=== PATIENT | female | born 1975 | race Caucasian/White ===

== ENCOUNTER 2016-03-28 18:10 | Emergency (ER) | payer BC ==
--- NOTE | 2016-03-28 18:30 | ER Document Report ---
ED Medical Screen (RME) - General Stated Complaint: FEVER Time seen by provider: 18:29 Mode of Arrival: Ambulatory Information source: Patient Notes: 41-year-old female presents to ED for fever and cough for off and on since Thursday. She has a temperature in RME of 101.6 and states she took ibuprofen last set around 11:00 this morning. States she does not remember when her last menstrual period was cause her son crashed and she did cannot look it up she thinks she had one last month. States she's had a tubal ligation I have greeted and performed a rapid initial assessment of this patient. A comprehensive ED assessment and evaluation of the patient, analysis of test results and completion of medical decision making process will be conducted by an additional ED providers. TRAVEL OUTSIDE OF THE [place] IN LAST 30 DAYS: No Past Medical History - Past Medical History Cardiac Medical History: Reports: Hx Hypercholesterolemia, Hx Hypertension Endocrine Medical History: Reports: Hx Diabetes Mellitus Type 2 Musculoskeltal Medical History: Reports Hx Musculoskeletal Trauma Past Surgical History: Reports: Hx Section - Immunizations Hx Diphtheria, Pertussis, Tetanus Vaccination: Yes
[2016-03-28] MEDS ORDERED: ACETAMINOPHEN 325 MG TABLET PO ONE (18:31)
[2016-03-28] MEDS ORDERED: NORMAL SALINE 1000 ML 1,000 ML IV ONE (18:59)
--- NOTE | 2016-03-28 20:08 | ER Document Report ---
ED General - General Mode of Arrival: Ambulatory Information source: Patient TRAVEL OUTSIDE OF THE [place] IN LAST 30 DAYS: No - HPI Onset: Other - see HPI Onset/Duration: Gradual Associated symptoms: Chest pain, Productive cough, Fever <MAYRA HOOKER - Last Filed: 03/28/16 22:04> <CHRISTIAN MCKEON - Last Filed: 03/28/16 23:13> - General Chief Complaint: Fever Stated Complaint: FEVER Notes: Cough and chest wall pain. Patient states that her cough started Thursday and her chest wall pain is exacerbated when she is coughing. Patient states she also has a slight sore throat. Patient has hypertension and diabetes mellitus and is taking metformin. Patient's blood glucose level has been slightly high [id number]. Patient states she feels weak like she is going to pass out. Patient also has a fever of 101.6 F. Patient states that she has had the flue before but does not remember if her symptoms are equivalent to her symptoms now. Patient is allergic to aspirin. (MAYRA HOOKER) - Related Data Allergies/Adverse Reactions: aspirin Allergy (Verified 03/28/16 18:29) Past Medical History - General Information source: Patient - Social History Smoking Status: Unknown if Ever Smoked Chew tobacco use (# tins/day): No Frequency of alcohol use: None Drug Abuse: None Family History: Reviewed & Not Pertinent, Arthritis, CAD, DM, Hyperlipidemia, Hypertension, Malignancy, Thyroid Disfunction Patient has suicidal ideation: No Patient has homicidal ideation: No - Past Medical History Cardiac Medical History: Reports: Hx Hypercholesterolemia, Hx Hypertension Endocrine Medical History: Reports: Hx Diabetes Mellitus Type 2 Musculoskeltal Medical History: Reports Hx Musculoskeletal Trauma Past Surgical History: Reports: Hx Section - Immunizations Hx Diphtheria, Pertussis, Tetanus Vaccination: Yes <MAYRA HOOKER - Last Filed: 03/28/16 22:04> Review of Systems - Review of Systems Constitutional: See HPI, Fever, Malaise, Weakness EENT: See HPI, Throat pain Cardiovascular: See HPI, Chest pain Respiratory: See HPI, Cough Gastrointestinal: No symptoms reported Genitourinary: No symptoms reported Female Genitourinary: No symptoms reported Musculoskeletal: No symptoms reported Skin: No symptoms reported Hematologic/Lymphatic: No symptoms reported Neurological/Psychological: No symptoms reported -: Yes All other systems reviewed and negative <MAYRA HOOKER - Last Filed: 03/28/16 22:04> Physical Exam - Vital signs Interpretation: Tachycardic, Febrile - General General appearance: Appears well, Alert In distress: Mild - HEENT Head: Normocephalic, Atraumatic Eyes: Normal Pupils: PERRL Mucous membranes: Normal - Respiratory Respiratory status: No respiratory distress Chest status: Nontender Breath sounds: Normal Chest palpation: Normal - Cardiovascular Rhythm: Regular Heart sounds: Normal auscultation Murmur: No - Abdominal Inspection: Normal Distension: No distension Bowel sounds: Normal Tenderness: Nontender Organomegaly: No organomegaly - Back Back: Normal, Nontender - Extremities General upper extremity: Normal inspection, Normal ROM, Normal strength General lower extremity: Normal inspection, Normal ROM, Normal strength - Neurological Neuro grossly intact: Yes Cognition: Normal Orientation: AAOx4 Tamara Coma Scale Eye Opening: Spontaneous Russell Coma Scale Verbal: Oriented Russell Coma Scale Motor: Obeys Commands Tamara Coma Scale Total: 15 Speech: Normal - Psychological Associated symptoms: Normal affect, Normal mood - Skin Skin Temperature: Warm Skin Moisture: Dry <MAYRA HOOKER - Last Filed: 03/28/16 22:04> Course - Laboratory Result Diagrams: 03/28/16 20:15 03/28/16 20:15 <MAYRA HOOKER - Last Filed: 03/28/16 22:04> - Laboratory Result Diagrams: 03/28/16 20:15 03/28/16 21:49 - Diagnostic Test Radiology reviewed: Image reviewed, Reports reviewed <CHRISTIAN MCKEON - Last Filed: 03/28/16 23:13> - Re-evaluation Re-evalutation: 03/28/16 Patient is a 41-year-old female who comes in with a fever and cough. No evidence for pneumonia. No respiratory distress. Patient's heart rate and blood pressure are within normal limits after 2 L of fluid. Patient feels better. I cannot find any evidence for bacterial infection. Lactate is within normal limits. Likely influenza and a false-negative test. Patient will be discharged home and is to return immediately if she has any worsening or concerning symptoms. Understands and agrees with plan. Stable for discharge. ( CHRISTIAN MCKEON) - Vital Signs Vital signs: Temp Pulse Resp BP Pulse Ox 100.6 F H 139 H 14 111/74 97 03/28/16 22:11 03/28/16 18:23 03/28/16 21:01 03/28/16 21:01 03/28/16 21:01 (MAYRA HOOKER) (CHRISTIAN MCKEON) - Laboratory Laboratory results interpreted by me: 03/28/16 03/28/16 03/28/16 20:15 20:15 21:49 RDW 15.1 H Seg Neutrophils % 82.6 H Lymphocytes % 9.8 L Sodium 136.5 L Potassium 5.3 H Glucose 189 H AST 38 H ALT 63 H Urine Protein 30 H Urine Ketones 20 H Ur Leukocyte Esterase TRACE H (CHRISTIAN MCKEON) Discharge <MAYRA HOOKER - Last Filed: 03/28/16 22:04> <CHRISTIAN MCKEON - Last Filed: 03/28/16 23:13> - Discharge Clinical Impression: Influenza-like illness Condition: Stable Disposition: ADMITTED INPATIENT Instructions: Fever ([facility]), Viral Syndrome ([facility]) Additional Instructions: Please return if you have any further concerns or worsening symptoms. Prescriptions: Tramadol HCl 50 mg PO BIDP PRN #20 tablet PRN Reason: Forms: Return to Work Referrals: JUAN F FUENTES MD [Primary Care Provider] - Follow up as needed Scribe Attestation: 03/28/16 23:13 I personally performed the services described in the documentation, reviewed and edited the documentation which was dictated to the scribe in my presence, and it accurately records my words and actions. (CHRISTIAN MCKEON) Scribe Documentation - Scribe Written by Scribmanuel:: Mayra Hooker 03/28/16 21:45 acting as scribe for :: Patsy <MAYRA HOOKER - Last Filed: 03/28/16 22:04>
[2016-03-28 20:35] LABS: ABSOLUTE LYMPHOCYTES (AUTO) 0.9 10^3/uL (0.5-4.7); ABSOLUTE MONOCYTES (AUTO) 0.7 10^3/uL (0.1-1.4); ABSOLUTE NEUT (AUTO) 7.9 10^3/uL (1.7-8.2); BASOPHILS % (AUTO) 0.4 % (0-2); EOSINOPHILS % (AUTO) 0.2 % (0-6); HEMATOCRIT 39.5 % (36.0-47.0); HEMOGLOBIN 12.9 g/dL (12.0-15.5); HGB HCT DIFFERENCE -0.8; LYMPHOCYTES % (AUTO) 9.8 % (13-45); MEAN CORPUSCULAR HEMOGLOBIN 27.5 pg (27.0-33.4); MEAN CORPUSCULAR HGB CONC 32.6 g/dL (32.0-36.0); MEAN CORPUSCULAR VOLUME 84 fl (80-97); RED BLOOD COUNT 4.69 10^6/uL (3.72-5.28); RED CELL DISTRIBUTION WIDTH 15.1 % (11.5-14.0); SEGMENTED NEUTROPHILS % (AUTO) 82.6 % (42-78); WHITE BLOOD COUNT 9.6 10^3/uL (4.0-10.5)
[2016-03-28 20:58] LABS: APPEARANCE,URINE SLIGHTLY-CLOUDY; BILIRUBIN,URINE NEGATIVE (NEGATIVE); GLUCOSE, URINE NEGATIVE (NEGATIVE); KETONES,URINE 20 mg/dL (NEGATIVE); LEUKOCYTE ESTERASE,URINE TRACE (NEGATIVE); NITRITE,URINE NEGATIVE (NEGATIVE); PROTEIN,URINE 30 mg/dL (NEGATIVE); UROBILINOGEN,URINE NEGATIVE mg/dL (<2.0)
[2016-03-28] MEDS ORDERED: RINGERS SOLUTION,LACTATED 1,000 ML IV ONE (21:26)
[2016-03-28 22:19] LABS: ALANINE AMINOTRANSFERASE 63 U/L (9-52); ALKALINE PHOSPHATASE 53 U/L (38-126); ANION GAP 15 (5-19); ASPARTATE AMINO TRANSFERASE 38 U/L (14-36); BILIRUBIN,TOTAL 0.4 mg/dL (0.2-1.3); BLOOD UREA NITROGEN 14 mg/dL (7-20); CALCIUM 9.3 mg/dL (8.4-10.2); CARBON DIOXIDE 24 mmol/L (22-30); CHLORIDE 98 mmol/L (98-107); CREATININE RESULT 0.79 mg/dL (0.52-1.25); GLUCOSE 189 mg/dL (75-110); POTASSIUM 5.3 mmol/L (3.6-5.0); SODIUM 136.5 mmol/L (137-145); TOTAL PROTEIN 7.4 g/dL (6.3-8.2)
[2016-03-28] MEDS ORDERED: HYDROCODONE/ACETAMINOPHEN 5-325 MG 6 TAB/DSPK PO PRN (22:51)
[2016-03-28] MEDS ORDERED: IBUPROFEN 600 MG TABLET PO ONE (22:51)
[2016-03-29 04:18] VITALS: BP 116/81
== END 2016-03-29 00:15 | disposition home or self-care (01) ==
LOC: ER 18:10
DX: J11.1 Influenza due to unidentified influenza virus with other respiratory manifestations (principal); R50.9 Fever, unspecified; R07.9 Chest pain, unspecified; R53.1 Weakness; I10 Essential (primary) hypertension; E11.9 Type 2 diabetes mellitus without complications; Z79.84 Long term (current) use of oral hypoglycemic drugs; E78.00 Pure hypercholesterolemia, unspecified
CPT/HCPCS: 99284; 96361; 96365; 36415; 87040; 85025; 80053; 81001; 83605; 87804; 71020; 71260; J7030; J7120

== ENCOUNTER 2017-07-29 18:05 | Emergency (ER) | payer BC ==
[2017-07-29] MEDS ORDERED: NORMAL SALINE 1000 ML 1,000 ML IV ONE (18:54)
--- NOTE | 2017-07-29 19:00 | ER Document Report ---
ED Medical Screen (RME) - General Chief Complaint: High Blood Pressure Stated Complaint: BLOOD PRESSURE ISSUES Time Seen by Provider: 07/29/17 18:49 Notes: 42 years old female with a history of diabetes, hypertension, noncompliant with medication, not been taking losartan regularly, presents today with episode of dizziness and lightheadedness, with an elevated blood pressure. Denies any chest pain but felt the heart beating faster. Denies any left arm numbness tingling sensation. Denies any fever chills or other constitutional symptoms I have greeted and performed a rapid initial assessment of this patient. A comprehensive ED assessment and evaluation of the patient, analysis of test results and completion of the medical decision making process will be conducted by additional ED providers. PHYSICAL EXAMINATION: GENERAL: Well-appearing, well-nourished and in no acute distress. Obese HEAD: Atraumatic, normocephalic. EYES: Pupils equal round extraocular movements intact, conjunctiva are normal. ENT: Nares patent NECK: Normal range of motion LUNGS: No respiratory distress Musculoskeletal: Normal range of motion NEUROLOGICAL: Normal speech, normal gait. PSYCH: Normal mood, normal affect. SKIN: Warm, Dry, normal turgor, no rashes or lesions noted. TRAVEL OUTSIDE OF THE [place] IN LAST 30 DAYS: No - Related Data Allergies/Adverse Reactions: aspirin Allergy (Verified 07/29/17 18:09) Past Medical History - General Information source: Patient - Social History Chew tobacco use (# tins/day): No Frequency of alcohol use: None Drug Abuse: None Family history: Reviewed & Not Pertinent - Past Medical History Cardiac Medical History: Reports: Hx Hypercholesterolemia, Hx Hypertension Endocrine Medical History: Reports: Hx Diabetes Mellitus Type 2 Renal/ Medical History: Denies: Hx Peritoneal Dialysis Musculoskeltal Medical History: Reports Hx Musculoskeletal Trauma Past Surgical History: Reports: Hx Section - x2, Hx Tonsillectomy - Immunizations Hx Diphtheria, Pertussis, Tetanus Vaccination: Yes Review of Systems - Review of Systems Notes: [facility] Physical Exam - Vital signs Vitals: Pulse BP 120 H 154/109 H 07/29/17 18:51 07/29/17 18:51 - Notes Notes: [facility] Course - Vital Signs Vital signs: Temp Pulse Resp BP Pulse Ox 120 H 154/109 H 07/29/17 18:51 07/29/17 18:51 Doctor's Discharge - Discharge Referrals: JUAN F FUENTES MD [Primary Care Provider] - Follow up as needed
[2017-07-29 19:57] LABS: ABSOLUTE BASOPHILS # (AUTO) 0.1 10^3/uL (0.0-0.2); ABSOLUTE EOSINOPHILS # (AUTO) 0.1 10^3/uL (0.0-0.6); ABSOLUTE LYMPHOCYTES (AUTO) 1.3 10^3/uL (0.5-4.7); ABSOLUTE MONOCYTES (AUTO) 0.5 10^3/uL (0.1-1.4); ABSOLUTE NEUT (AUTO) 10.8 10^3/uL (1.7-8.2); BASOPHILS % (AUTO) 0.5 % (0-2); EOSINOPHILS % (AUTO) 0.6 % (0-6); HEMATOCRIT 37.7 % (36.0-47.0); HEMOGLOBIN 12.2 g/dL (12.0-15.5); LYMPHOCYTES % (AUTO) 10.2 % (13-45); MEAN CORPUSCULAR HEMOGLOBIN 25.9 pg (27.0-33.4); MEAN CORPUSCULAR HGB CONC 32.5 g/dL (32.0-36.0); MEAN CORPUSCULAR VOLUME 80 fl (80-97); MONOCYTES % (AUTO) 4.3 % (3-13); PLATELET COUNT 512 10^3/uL (150-450); RED BLOOD COUNT 4.74 10^6/uL (3.72-5.28); RED CELL DISTRIBUTION WIDTH 15.3 % (11.5-14.0); SEGMENTED NEUTROPHILS % (AUTO) 84.4 % (42-78); TOTAL CELLS COUNTED % (AUTO) 100 %; WHITE BLOOD COUNT 12.7 10^3/uL (4.0-10.5)
[2017-07-29 20:03] LABS: APPEARANCE,URINE CLEAR; BILIRUBIN,URINE NEGATIVE (NEGATIVE); COLOR,URINE STRAW; GLUCOSE, URINE >=500 mg/dL (NEGATIVE); KETONES,URINE TRACE mg/dL (NEGATIVE); LEUKOCYTE ESTERASE,URINE NEGATIVE (NEGATIVE); NITRITE,URINE NEGATIVE (NEGATIVE); PROTEIN,URINE NEGATIVE (NEGATIVE); URINE SPECIFIC GRAVITY 1.009; UROBILINOGEN,URINE NEGATIVE mg/dL (<2.0)
[2017-07-29 20:12] LABS: ALANINE AMINOTRANSFERASE 36 U/L (9-52); ALBUMIN 5.1 g/dL (3.5-5.0); ALKALINE PHOSPHATASE 63 U/L (38-126); ANION GAP 18 (5-19); ASPARTATE AMINO TRANSFERASE 20 U/L (14-36); BILIRUBIN,DIRECT 0.3 mg/dL (0.0-0.4); BILIRUBIN,TOTAL 0.3 mg/dL (0.2-1.3); BLOOD UREA NITROGEN 14 mg/dL (7-20); CALCIUM 10.6 mg/dL (8.4-10.2); CARBON DIOXIDE 24 mmol/L (22-30); CHLORIDE 101 mmol/L (98-107); GLUCOSE 189 mg/dL (75-110); POTASSIUM 4.6 mmol/L (3.6-5.0); SODIUM 143.1 mmol/L (137-145); TOTAL PROTEIN 8.6 g/dL (6.3-8.2)
--- NOTE | 2017-07-29 21:14 | ER Document Report ---
ED General - General Chief Complaint: High Blood Pressure Stated Complaint: BLOOD PRESSURE ISSUES Time Seen by Provider: 07/29/17 18:49 Notes: Patient is a 42-year-old female who presents emergency department the chief complaint of lightheadedness and fogginess that she has had on and off for years. She states that she has been seen multiple times the emergency department for this is never followed up with her primary care. Patient states that normally when she has this occurrence she checks her blood sugar and her blood pressure. Patient states that her sugar today was 142 and her blood pressure was 160/117. Patient states that she sporadically takes lisinopril 20 mg maybe once every other week since she forgets to take it. She is also on metformin and lovastatin. TRAVEL OUTSIDE OF THE [place] IN LAST 30 DAYS: No - Related Data Allergies/Adverse Reactions: aspirin Allergy (Verified 07/29/17 18:09) Past Medical History - General Information source: Patient - Social History Smoking Status: Never Smoker Chew tobacco use (# tins/day): No Frequency of alcohol use: None Drug Abuse: None Family History: Reviewed & Not Pertinent, Arthritis, CAD, DM, Hyperlipidemia, Hypertension, Malignancy, Thyroid Disfunction Patient has suicidal ideation: No Patient has homicidal ideation: No - Past Medical History Cardiac Medical History: Reports: Hx Hypercholesterolemia, Hx Hypertension Endocrine Medical History: Reports: Hx Diabetes Mellitus Type 2 Renal/ Medical History: Denies: Hx Peritoneal Dialysis Musculoskeltal Medical History: Reports Hx Musculoskeletal Trauma Past Surgical History: Reports: Hx Section - x2, Hx Tonsillectomy - Immunizations Hx Diphtheria, Pertussis, Tetanus Vaccination: Yes Review of Systems - Review of Systems Constitutional: See HPI EENT: No symptoms reported Cardiovascular: No symptoms reported Respiratory: No symptoms reported Gastrointestinal: No symptoms reported Musculoskeletal: No symptoms reported Neurological/Psychological: See HPI -: Yes All other systems reviewed and negative Physical Exam - Vital signs Vitals: Pulse BP 120 H 154/109 H 07/29/17 18:51 07/29/17 18:51 - Notes Notes: PHYSICAL EXAM GENERAL: Alert, interacts well. HEAD: Normocephalic, atraumatic. EYES: Pupils equal, round, and reactive to light. Extraocular movements intact. ENT: Oral mucosa moist, tongue midline. NECK: Full range of motion. Supple. Trachea midline. LUNGS: Clear to auscultation bilaterally, no wheezes, rales, or rhonchi. No respiratory distress. HEART: Regular rate and rhythm. No murmurs, gallops, or rubs. ABDOMEN: Soft, nondistended, nontender. No guarding, rebound, or rigidity.. Bowel sounds present in all 4 quadrants. EXTREMITIES: Moves all 4 extremities spontaneously. No edema, radial and dorsalis pedis pulses 2/4 bilaterally. No cyanosis. NEUROLOGICAL: Alert and oriented x4. Face symmetric. Tongue protrudes midline. Extraocular motions intact. Pupils are 2 mm and equally reactive. Normal speech, normal gait. 5 out of 5 strength in both the distal and proximal upper and lower extremities bilaterally. Sensation is grossly intact throughout. Finger to nose testing normal. Pronator drift normal. PSYCH: Normal affect, normal mood. SKIN: Warm, dry, normal turgor. No rashes or lesions noted. Course - Re-evaluation Re-evalutation: 07/29/17 21:52 Presentation of dizziness in a Patient normotensive, alert, without focal neurologic deficits at time of arrival. Denies syncope was during exertion. No preceding symptoms of palpitations, chest pain, or shortness of breath. Patient asymptomatic at time of arrival. EKG is without evidence of HCOM, right heart strain, ST changes to suggest ischemia, prolong QTc, delta wave, epsilon wave, or Brugada syndrome. Patient denies any family history of sudden cardiac , personal history of of structural heart disease. Patient denies any symptoms to suggest an acute PE, VT, TAD, SAH, seizure, or acute GI bleed as the etiology of their syncope today. On exam, no murmurs to suggest critical aortic stenosis as possible etiology. Based on overall clinical history, exam findings, vitals , and patients appearance, I feel it is safe for patient to be discharged home at this time with close outpatient follow-up and strict return precautions. Patient is in agreement with this plan, has verbalized indications for return to ED, and questions have been answered. - Vital Signs Vital signs: Temp Pulse Resp BP Pulse Ox 91 130/74 H 07/29/17 21:22 07/29/17 21:22 - Laboratory Result Diagrams: 07/29/17 19:45 07/29/17 19:45 Laboratory results interpreted by me: 05/30/18 05/30/18 05/30/18 19:45 19:45 19:45 WBC 12.7 H MCH 25.9 L RDW 15.3 H Plt Count 512 H Seg Neutrophils % 84.4 H Lymphocytes % 10.2 L Absolute Neutrophils 10.8 H Glucose 189 H Calcium 10.6 H Total Protein 8.6 H Albumin 5.1 H Urine Glucose (UA) >=500 H Urine Ketones TRACE H Urine Blood SMALL H - EKG Interpretation by Pa EKG shows normal: Sinus rhythm Rate: Normal Rhythm: NSR When compared to previous EKG there are: No significant change Discharge - Discharge Clinical Impression: Diabetes, Hypertension, Dizziness Condition: Good Disposition: HOME, SELF-CARE Instructions: High Blood Pressure ([facility]) Referrals: JUAN F FUENTES MD [NO LOCAL MD] - Follow up as needed [facility] [Provider Group] - Follow up as needed [facility] [Provider Group] - Follow up in 1 week
[2017-07-29 21:28] VITALS: BP 130/74
--- NOTE | 2017-07-29 23:12 | EKG REPORT ---
SEVERITY:- OTHERWISE NORMAL ECG - SINUS TACHYCARDIA : Confirmed by: Deandre Aden 29-Jul-2017 23:11:44
== END 2017-07-29 22:00 | disposition home or self-care (01) ==
LOC: ER 18:05
DX: E11.9 Type 2 diabetes mellitus without complications (principal); I10 Essential (primary) hypertension; R42 Dizziness and giddiness; E78.00 Pure hypercholesterolemia, unspecified; Z88.6 Allergy status to analgesic agent
CPT/HCPCS: 36415; 80053; 81001; 81025; 84484; 85025; 93005; 93010; 99284

== ENCOUNTER 2017-10-09 11:18 | Emergency (ER) | payer BC ==
--- NOTE | 2017-10-09 11:28 | ER Document Report ---
ED Medical Screen (RME) - General Chief Complaint: Anxiety Stated Complaint: BLOOD PRESSURE ISSUE, ARM PAIN Time Seen by Provider: 10/09/17 11:25 Mode of Arrival: Wheelchair Information source: Patient TRAVEL OUTSIDE OF THE [place] IN LAST 30 DAYS: No - HPI Patient complains to provider of: shaking L arm pain Onset: This morning - pt started on sertraline yesterday by PCP - states she started with shaking, chills, and L arm pain earlier this am. Denies CP - Related Data Allergies/Adverse Reactions: aspirin Allergy (Verified 07/29/17 18:09) Past Medical History - Social History Family history: Reviewed & Not Pertinent - Past Medical History Cardiac Medical History: Reports: Hx Hypercholesterolemia, Hx Hypertension Endocrine Medical History: Reports: Hx Diabetes Mellitus Type 2 Renal/ Medical History: Denies: Hx Peritoneal Dialysis Musculoskeltal Medical History: Reports Hx Musculoskeletal Trauma Past Surgical History: Reports: Hx Section - x2, Hx Tonsillectomy - Immunizations Hx Diphtheria, Pertussis, Tetanus Vaccination: Yes Doctor's Discharge - Discharge Instructions: Anxiety ([facility])
[2017-10-09 11:51] LABS: ABSOLUTE EOSINOPHILS # (AUTO) 0.1 10^3/uL (0.0-0.6); ABSOLUTE LYMPHOCYTES (AUTO) 1.5 10^3/uL (0.5-4.7); ABSOLUTE MONOCYTES (AUTO) 0.5 10^3/uL (0.1-1.4); ABSOLUTE NEUT (AUTO) 7.8 10^3/uL (1.7-8.2); BASOPHILS % (AUTO) 0.5 % (0-2); EOSINOPHILS % (AUTO) 0.9 % (0-6); HEMATOCRIT 36.3 % (36.0-47.0); LYMPHOCYTES % (AUTO) 15.4 % (13-45); MEAN CORPUSCULAR HEMOGLOBIN 26.9 pg (27.0-33.4); MEAN CORPUSCULAR HGB CONC 33.1 g/dL (32.0-36.0); MEAN CORPUSCULAR VOLUME 81 fl (80-97); MONOCYTES % (AUTO) 5.3 % (3-13); PLATELET COUNT 520 10^3/uL (150-450); RED BLOOD COUNT 4.46 10^6/uL (3.72-5.28); SEGMENTED NEUTROPHILS % (AUTO) 77.9 % (42-78); TOTAL CELLS COUNTED % (AUTO) 100 %
[2017-10-09 12:03] LABS: AMORPHOUS SEDIMENT,URINE TRACE /HPF; APPEARANCE,URINE CLEAR; BILIRUBIN,URINE NEGATIVE (NEGATIVE); COLOR,URINE YELLOW; GLUCOSE, URINE NEGATIVE (NEGATIVE); KETONES,URINE NEGATIVE (NEGATIVE); LEUKOCYTE ESTERASE,URINE SMALL (NEGATIVE); NITRITE,URINE NEGATIVE (NEGATIVE); PROTEIN,URINE 100 mg/dL (NEGATIVE); URINE SPECIFIC GRAVITY 1.004; UROBILINOGEN,URINE NEGATIVE mg/dL (<2.0)
[2017-10-09 12:20] LABS: ALANINE AMINOTRANSFERASE 25 U/L (9-52); ALBUMIN 4.9 g/dL (3.5-5.0); ALKALINE PHOSPHATASE 64 U/L (38-126); ANION GAP 19 (5-19); ASPARTATE AMINO TRANSFERASE 18 U/L (14-36); BILIRUBIN,DIRECT 0.3 mg/dL (0.0-0.4); BILIRUBIN,TOTAL 0.5 mg/dL (0.2-1.3); BLOOD UREA NITROGEN 11 mg/dL (7-20); CALCIUM 10.1 mg/dL (8.4-10.2); CARBON DIOXIDE 22 mmol/L (22-30); CHLORIDE 99 mmol/L (98-107); GLUCOSE 194 mg/dL (75-110); POTASSIUM 4.5 mmol/L (3.6-5.0); SODIUM 139.5 mmol/L (137-145); TOTAL PROTEIN 8.3 g/dL (6.3-8.2)
--- NOTE | 2017-10-09 12:39 | ER Document Report ---
Addendum entered and electronically signed by ERIN BELTRAN LCSWA 10/09/17 15: 42: Discharge - Discharge Clinical Impression: Agoraphobia with panic attacks Condition: Stable Disposition: HOME, SELF-CARE Instructions: Anxiety ([facility]) Additional Instructions: You have been evaluated by both medical and behavioral health team's and have deemed appropriate for discharge. You are recommended to follow-up with a mental health professional of your choice; you have been provided a local resource list. You have been prescribed Effexor 37.5 mg daily and BuSpar 5 mg every morning and 10 mg nightly, please take as prescribed. Panic Attack The cause of panic attacks is unknown. Symptoms can include chest pain, shortness of breath, palpitations, sweats, and a sense of smothering or impending doom. In time, the panic attacks can lead to generalized anxiety and phobias. Because the symptoms can mimic heart attack, pulmonary embolism, and other serious diseases, the physician has evaluated you for these conditions. There is no evidence of a serious problem. An acute panic attack usually goes away by itself without treatment. A severe attack can be treated with medicine to calm you. Long-term, antidepressant medicines may help prevent attacks. Counselling can also be very beneficial in dealing with panic attacks. Panic attacks are less likely if you are getting regular exercise, proper diet, and plenty of sleep. It's normal for panic attacks to cause many frightening symptoms. However, you should call or return if your symptoms change significantly or if you are worsening. Prescriptions: Buspirone HCl [Buspar 5 mg Tablet] 1 tab PO ASDIR PRN #42 tab PRN Reason: Venlafaxine HCl ER [Effexor Xr 37.5 mg Cap.sr] 37.5 mg PO DAILY #14 cap.sr.24h Referrals: IRA ZENDEJAS DO [Primary Care Provider] - Follow up as needed Scribe Attestation: 10/09/17 12:45 I personally performed the services described in the documentation, reviewed and edited the documentation which was dictated to the scribe in my presence, and it accurately records my words and actions. Original Note: ED Psych Disorder / Suicide - General Mode of Arrival: Wheelchair Information source: Patient TRAVEL OUTSIDE OF THE [place] IN LAST 30 DAYS: No <KEMAR VALLEJO - Last Filed: 10/09/17 14:05> <ERIN BELTRAN - Last Filed: 10/09/17 15:37> <LU CORREIA - Last Filed: 10/09/17 15:44> - General Chief Complaint: Anxiety Stated Complaint: BLOOD PRESSURE ISSUE, ARM PAIN Time Seen by Provider: 10/09/17 11:25 Notes: 42-year-old female who presents to the emergency department today with complaints of anxiety. Patient is agoraphobic and she was started on Zoloft last night to try to help with this. Patient states today she got increased anxiety when going to the mall. Patient denies any increased stressors at home. (KEMAR VALLEJO) - Related Data Allergies/Adverse Reactions: aspirin Allergy (Verified 10/09/17 11:31) Past Medical History - General Information source: Patient - Social History Smoking Status: Never Smoker Cigarette use (# per day): No Frequency of alcohol use: None Drug Abuse: None Lives with: Family Family History: Reviewed & Not Pertinent, Arthritis, CAD, DM, Hyperlipidemia, Hypertension, Malignancy, Thyroid Disfunction Patient has suicidal ideation: No Patient has homicidal ideation: No - Past Medical History Cardiac Medical History: Reports: Hx Hypercholesterolemia, Hx Hypertension Endocrine Medical History: Reports: Hx Diabetes Mellitus Type 2 Musculoskeletal Medical History: Reports Hx Musculoskeletal Trauma Past Surgical History: Reports: Hx Section - x2, Hx Tonsillectomy - Immunizations Hx Diphtheria, Pertussis, Tetanus Vaccination: Yes <KEMAR VALLEJO - Last Filed: 10/09/17 14:05> Review of Systems - Review of Systems Constitutional: No symptoms reported EENT: No symptoms reported Cardiovascular: No symptoms reported Respiratory: No symptoms reported Gastrointestinal: No symptoms reported Genitourinary: No symptoms reported Female Genitourinary: No symptoms reported Musculoskeletal: No symptoms reported Skin: No symptoms reported Hematologic/Lymphatic: No symptoms reported Neurological/Psychological: See HPI, Anxiety -: Yes All other systems reviewed and negative <KEMAR VALLEJO - Last Filed: 10/09/17 14:05> Physical Exam <KEMAR VALLEJO - Last Filed: 10/09/17 14:05> <ERIN BELTRAN - Last Filed: 10/09/17 15:37> <LU CORREIA - Last Filed: 10/09/17 15:44> - Vital signs Vitals: Temp Pulse Resp BP Pulse Ox 98.8 F 125 H 16 173/92 H 100 10/09/17 11:26 10/09/17 11:26 10/09/17 11:26 10/09/17 11:26 10/09/17 11:26 - Notes Notes: Physical Exam: General: Alert, appears well. HEENT: Normocephalic. Atraumatic. PERRL. Extraocular movements intact. Oropharynx clear. Neck: Supple. Non-tender. Respiratory: No respiratory distress. Clear and equal breath sounds bilaterally. Cardiovascular: Regular rate and rhythm. Abdominal: Obese. Non-tender. No distension. Normal Bowel Sounds. Back: Non-tender. No deformity or step off. Extremities: Moves all four extremities. Upper extremities: Normal inspection. Normal ROM. Lower extremities: Normal inspection. No edema. Normal ROM. Neurological: Normal cognition. AAOx4. Normal speech. Psychological: Tearful. Anxious. Skin: Warm. Dry. Normal color. (KEMAR VALLEJO) Course - Laboratory Result Diagrams: 10/09/17 11:38 10/09/17 11:38 <KEMAR VALLEJO - Last Filed: 10/09/17 14:05> - Laboratory Result Diagrams: 10/09/17 11:38 10/09/17 11:38 <LU CORREIA - Last Filed: 10/09/17 15:44> - Vital Signs Vital signs: Temp Pulse Resp BP Pulse Ox 98.8 F 125 H 16 173/92 H 100 10/09/17 11:26 10/09/17 11:26 10/09/17 11:26 10/09/17 11:26 10/09/17 11:26 - Laboratory Laboratory results interpreted by me: 10/09/17 10/09/17 10/09/17 11:38 11:38 11:38 MCH 26.9 L RDW 16.0 H Plt Count 520 H Glucose 194 H Total Protein 8.3 H Urine Protein 100 H Ur Leukocyte Esterase SMALL H Discharge <KEMAR VALLEJO - Last Filed: 10/09/17 14:05> <ERIN BELTRAN - Last Filed: 10/09/17 15:37> <LU CORREIA - Last Filed: 10/09/17 15:44> - Discharge Clinical Impression: Agoraphobia with panic attacks Condition: Stable Disposition: HOME, SELF-CARE Instructions: Anxiety ([facility]) Additional Instructions: You have been evaluated by both medical and behavioral health team's and have deemed appropriate for discharge. You are recommended to follow-up with a mental health professional of your choice; you have been provided a local resource list. You have been prescribed Effexor 37.5 mg daily and BuSpar 5 mg every morning and 10 mg nightly, please take as prescribed. Panic Attack The cause of panic attacks is unknown. Symptoms can include chest pain, shortness of breath, palpitations, sweats, and a sense of smothering or impending doom. In time, the panic attacks can lead to generalized anxiety and phobias. Because the symptoms can mimic heart attack, pulmonary embolism, and other serious diseases, the physician has evaluated you for these conditions. There is no evidence of a serious problem. An acute panic attack usually goes away by itself without treatment. A severe attack can be treated with medicine to calm you. Long-term, antidepressant medicines may help prevent attacks. Counselling can also be very beneficial in dealing with panic attacks. Panic attacks are less likely if you are getting regular exercise, proper diet, and plenty of sleep. It's normal for panic attacks to cause many frightening symptoms. However, you should call or return if your symptoms change significantly or if you are worsening. Prescriptions: Buspirone HCl [Buspar 5 mg Tablet] 1 tab PO ASDIR PRN #42 tab PRN Reason: Venlafaxine HCl ER [Effexor Xr 37.5 mg Cap.sr] 37.5 mg PO DAILY #14 cap.sr.24h Referrals: IRA ZENDEJAS DO [Primary Care Provider] - Follow up as needed Scribe Attestation: 10/09/17 12:45 I personally performed the services described in the documentation, reviewed and edited the documentation which was dictated to the scribe in my presence, and it accurately records my words and actions. (LU CORREIA) Scribe Documentation - Scribe Written by Scribe:: Irina Bowles, 10/09/2017 1411 acting as scribe for :: Jeovanny <KEMAR VALLEJO - Last Filed: 10/09/17 14:05>
--- NOTE | 2017-10-09 15:05 | PSYCHOLOGICAL NOTE ---
Psych Note - Psych Note Psych Note: Reason for consultation: Anxiety Consent permissions: Patient's at bedside per patient's request Pt comes in today for increased anxiety after changing her medications yesterday. Pt was seen yesterday at [place] and put on 25mg Sertraline to be taken daily. Pt started this medication as prescribed. Patient discloses difficulty in concentration in addition to multiple other physical side effects from a panic attack. She reports that she was prescribed Zoloft by her primary health careers instructor and took her first 1 last night. She states that when she awoke she was in a panic. Patient disclosed she has a diagnosis of agoraphobia and has been increasingly more difficult to leave her home. She went to her primary doctor in hopes of getting medication that will make it easier. She states that she is unable to drive or even make it to go shopping. Patient's , Tommie, discloses the patient does have a very difficult time going out in public and has not been able to drive now for a few years. He discloses no other concern for the patient with thoughts of harming herself or others. Patient is alert and orientated to person, place, time and circumstance. Mood is anxious with congruent affect: Patient is observed holding a arnold bear against her chest and her 's hand. Patient denies suicidal and homicidal ideation. Delusions are absent behaviors congruent with intact reality based presentation i.e. organized and linear thought process. Eye contact is maintained. Conversational speech was within normal rate, tone and prosody. Intellectual abilities appear to be within the average range. Attention and concentration were good. Insight, judgment, impulse control are good. medication recommendations per [facility]'s contracted psychiatrist Dr. Alexandra LOMELI are as follows 1. Effexor 37.5 mg daily 2. BuSpar 5 mg every morning and 10 mg nightly 300.22 (F40.00) agoraphobia Impression/plan: Patient is cleared from acute psychiatric service. Clinician conducted psychoeducation on treatment options for agoraphobia. Explained the patient needed to follow-up with outpatient mental health provider which includes both medication management and therapeutic intervention. Medication recommendations have been provided Dr. Gordon was consulted and the care and management of this patient; attending physician is in agreement with recommendations and disposition.
[2017-10-09 15:55] VITALS: BP 131/89
== END 2017-10-09 16:07 | disposition home or self-care (01) ==
LOC: ER 11:18
DX: F40.01 Agoraphobia with panic disorder (principal); I10 Essential (primary) hypertension; E11.9 Type 2 diabetes mellitus without complications; Z88.6 Allergy status to analgesic agent
CPT/HCPCS: 36415; 80053; 81001; 81025; 85025; 99284

== ENCOUNTER 2018-09-21 13:39 | Emergency (ER) | payer SELFPAY ==
[2018-09-21] MEDS ORDERED: ASPIRIN 81 MG TABLET, CHEWABLE PO ONE (14:10)
[2018-09-21 14:46] LABS: ABSOLUTE BASOPHILS # (AUTO) 0.1 10^3/uL (0.0-0.2); ABSOLUTE EOSINOPHILS # (AUTO) 0.1 10^3/uL (0.0-0.6); ABSOLUTE LYMPHOCYTES (AUTO) 1.3 10^3/uL (0.5-4.7); ABSOLUTE MONOCYTES (AUTO) 0.6 10^3/uL (0.1-1.4); ABSOLUTE NEUT (AUTO) 7.7 10^3/uL (1.7-8.2); BASOPHILS % (AUTO) 1.1 % (0-2); EOSINOPHILS % (AUTO) 0.7 % (0-6); HEMATOCRIT 31.9 % (36.0-47.0); HEMOGLOBIN 10.5 g/dL (12.0-15.5); LYMPHOCYTES % (AUTO) 13.4 % (13-45); MEAN CORPUSCULAR HEMOGLOBIN 26.4 pg (27.0-33.4); MEAN CORPUSCULAR VOLUME 80 fl (80-97); MONOCYTES % (AUTO) 6.5 % (3-13); PLATELET COUNT 439 10^3/uL (150-450); RED BLOOD COUNT 3.99 10^6/uL (3.72-5.28); RED CELL DISTRIBUTION WIDTH 16.4 % (11.5-14.0); SEGMENTED NEUTROPHILS % (AUTO) 78.3 % (42-78); TOTAL CELLS COUNTED % (AUTO) 100 %; WHITE BLOOD COUNT 9.9 10^3/uL (4.0-10.5)
--- NOTE | 2018-09-21 14:46 | ER Document Report ---
ED General - General Chief Complaint: Chest Pain Stated Complaint: CHEST PRESSURE Time Seen by Provider: 09/21/18 14:45 Primary Care Provider: IRA ZENDEJAS DO [Primary Care Provider] - Follow up as needed PRIMITIVO KELSEY MD [ACTIVE STAFF] - Follow up in 3-5 days TRAVEL OUTSIDE OF THE [place] IN LAST 30 DAYS: No - HPI Notes: 43-year-old female history of hypertension, diabetes type 2, hypercholesterolemia, depression Presents to the ED with complaints of substernal chest pressure that started this morning at 0700, without exertion, states that last approximately half an hour, reports she also woke up with bilateral upper back pain. Reports her back pain is relieved when she moved around today. Patient is not currently having any chest pain. Patient states she is a baseline tachycardia. pt is a non-smoker. Father with a history of triple bypass, has recently passed due to lung infection, mother is alive, denies any cardiac or stroke past medical problems. Denies fevers, chills,palpitations, shortness of breath, dyspnea, nausea, vomiting, diarrhea, abdominal pain, hematuria,blurred vision, double vision, loss of vision, speech changes, LH, dizziness, syncope, headaches, wheezing, ST, URI, neck pain, weakness, bowel or bladder dysfunction, saddle anesthesia, numbness or tingling in bilateral upper or lower extremities equally, muscle paralysis, weakness in bilateral upper or lower extremities equally or rash. - Related Data Allergies/Adverse Reactions: aspirin Allergy (Verified 09/21/18 13:44) Past Medical History - General Information source: Patient - Social History Smoking Status: Unknown if Ever Smoked Family History: Reviewed & Not Pertinent, Arthritis, CAD, DM, Hyperlipidemia, Hypertension, Malignancy, Thyroid Disfunction Patient has suicidal ideation: No Patient has homicidal ideation: No - Past Medical History Cardiac Medical History: Reports: Hx Hypercholesterolemia, Hx Hypertension Endocrine Medical History: Reports: Hx Diabetes Mellitus Type 2 Renal/ Medical History: Denies: Hx Peritoneal Dialysis Musculoskeletal Medical History: Reports Hx Musculoskeletal Trauma Past Surgical History: Reports: Hx Section - x2, Hx Tonsillectomy - Immunizations Hx Diphtheria, Pertussis, Tetanus Vaccination: Yes Review of Systems - Review of Systems Constitutional: No symptoms reported EENT: No symptoms reported Cardiovascular: See HPI Respiratory: No symptoms reported Gastrointestinal: No symptoms reported Genitourinary: No symptoms reported Female Genitourinary: No symptoms reported Musculoskeletal: No symptoms reported Skin: No symptoms reported Hematologic/Lymphatic: No symptoms reported Neurological/Psychological: No symptoms reported Physical Exam - Vital signs Vitals: Temp Pulse Resp BP Pulse Ox 98.5 F 112 H 15 143/79 H 100 09/21/18 14:03 09/21/18 14:03 09/21/18 14:03 09/21/18 14:03 09/21/18 14:03 - Notes Notes: PHYSICAL EXAMINATION: GENERAL: Well-appearing, well-nourished and in no acute distress. HEAD: Atraumatic, normocephalic. EYES: Pupils equal round and reactive to light, extraocular movements intact, conjunctiva are normal. ENT: Nares patent, oropharynx clear without exudates. Moist mucous membranes. NECK: Normal range of motion, supple without lymphadenopathy LUNGS: Breath sounds clear to auscultation bilaterally and equal. No wheezes rales or rhonchi. HEART: Sinus tachycardia without murmurs ABDOMEN: Soft, nontender, nondistended abdomen. No guarding, no rebound. No masses appreciated. Female : deferred Musculoskeletal: Normal range of motion, no pitting or edema. No cyanosis. Left shoulder pain with abduction and flexion at 40 degrees. no pain with supination, pronation, extension. negative , [employer] Security Analyst + 2 BUE equally. APROM in shoulder. DTR +2 in BUE equally. Noted crepitus with APROM in elbow. negative drop arm, neer sign, lehman test bilaterally. slightly positive impingement sign all on left. No vascular compromise. Neck with full APROM, no cervical spinal tenderness. No tenderness over clavicles or step off noted bilaterally. Strength 5 out of 5 in bilateral upper extremities equally. NEUROLOGICAL: Cranial nerves grossly intact. Normal speech, normal gait. Normal sensory, motor exams PSYCH: Normal mood, normal affect. SKIN: Warm, Dry, normal turgor, no rashes or lesions noted. Course - Re-evaluation Re-evalutation: 09/21/18 16:13 Afebrile vital stable no distress, d-dimer negative, CBC negative for heme leukocytosis or anemia, CMP negative for hepatic or renal dysfunction, no electrolyte disturbances. Initial troponin negative. D-dimer was negative. x- ray negative for pneumonia pneumothorax cardiomegaly or other abnormalities per radiology. EKG shows sinus tachycardia, no ST segment changes, no STEMI. Pt is not having any active chest pain throughout duration of ER visit, patient is allergic to aspirin therefore none has been given to her. Patient is resting comfortably, afebrile no distress. Patient has while trending her vitals throughout her previous states in the ED baseline a sinus tachycardia. She does need to follow-up with a junior administrative assistant for this tachycardia. Heart score is one- point which has a risk of major acute coronary episode of 0.9 to 1.7% second troponin negative. After performing a Medical Screening Examination, I estimate there is LOW risk for RUPTURED ESOPHAGUS, PNEUMOTHORAX, PULMONARY EMBOLISM, ACUTE CORONARY SYNDROME, OR THORACIC AORTIC DISSECTION, thus I consider the discharge disposition reasonable. I have reevaluated this patient multiple times and no significant life threatening changes are noted. The patient and I have discussed the diagnosis and risks, and we agree with discharging home with close follow-up. We also discussed returning to the Emergency Department immediately if new or worsening symptoms occur. We have discussed the symptoms which are most concerning (e.g., bloody sputum, worsening pain or shortness of breath) that necessitate immediate return. - Vital Signs Vital signs: Temp Pulse Resp BP Pulse Ox 98.5 F 112 H 21 H 124/77 98 09/21/18 14:03 09/21/18 14:03 09/21/18 19:00 09/21/18 14:16 09/21/18 19:00 - Laboratory Result Diagrams: 09/21/18 14:24 09/21/18 14:24 Laboratory results interpreted by me: 09/21/18 09/21/18 14:24 14:24 Hgb 10.5 L Hct 31.9 L MCH 26.4 L RDW 16.4 H Seg Neutrophils % 78.3 H Sodium 136.9 L Chloride 97 L Glucose 171 H Discharge - Discharge Clinical Impression: Chest pain Condition: Stable Disposition: HOME, SELF-CARE Instructions: Chest Wall Pain ([facility]), Chest Pain of Unclear Cause ([facility]), Reflux Disease (GERD) ([facility]) Additional Instructions: Today, your EKG and chest x-ray were normal. You do need to follow-up with a junior administrative assistant for sinus tachycardia, referral given to Dr. Kelsey. He may need Holter testing continue taking your acid reflux medication, follow-up with your primary care provider tomorrow. You were seen today for chest pain. The exact c ause of your pain is unclear. However, based on your cardiac enzyme testing, chest x-ray, and EKG it does not appear that it is from an immediately life- threatening cause at this time. Although your testing here is normal is critical that you follow-up with your primary care physician for continued evaluation of this chest pain and possible stress testing. I recommended you see your physician within the next 24-48 hours to be evaluated for consideration of a stress test. Please return to emergency department immediately if you have worsening of your chest pain, shortness of breath, vomiting, become unable to exert yourself due to pain or difficulty breathing, you pass out, or have any pain that radiates into your arms, jaw, or back. Please also return if you have any additional symptoms that are concerning to you. Referrals: IRA ZENDEJAS, DO [Primary Care Provider] - Follow up as needed PRIMITIVO KELSEY MD [ACTIVE STAFF] - Follow up in 3-5 days
[2018-09-21 15:07] LABS: ALANINE AMINOTRANSFERASE 18 U/L (9-52); ALBUMIN 4.8 g/dL (3.5-5.0); ALKALINE PHOSPHATASE 69 U/L (38-126); ANION GAP 14 (5-19); ASPARTATE AMINO TRANSFERASE 16 U/L (14-36); BILIRUBIN,DIRECT 0.3 mg/dL (0.0-0.4); BILIRUBIN,TOTAL 0.3 mg/dL (0.2-1.3); BLOOD UREA NITROGEN 11 mg/dL (7-20); CALCIUM 9.8 mg/dL (8.4-10.2); CARBON DIOXIDE 26 mmol/L (22-30); CHLORIDE 97 mmol/L (98-107); CREATINE KINASE 54 U/L (30-135); GLUCOSE 171 mg/dL (75-110); TOTAL PROTEIN 7.7 g/dL (6.3-8.2)
[2018-09-21 15:19] LABS: CREATINE KINASE MB 0.54 ng/mL (<4.55)
[2018-09-21 15:20] LABS: TROPONIN I < 0.012 ng/mL
--- NOTE | 2018-09-21 16:31 | RADIOLOGY REPORT (SQ) ---
EXAM DESCRIPTION: CHEST SINGLE VIEW COMPLETED DATE/TIME: 09/21/2018 2:42 pm REASON FOR STUDY: bed 4 cp COMPARISON: 03/28/2016 EXAM PARAMETERS: NUMBER OF VIEWS: One view. TECHNIQUE: Single frontal radiographic view of the chest acquired. RADIATION DOSE: NA LIMITATIONS: None. FINDINGS: LUNGS AND PLEURA: No opacities, masses or pneumothorax. No pleural effusion. MEDIASTINUM AND HILAR STRUCTURES: No masses. Contour normal. HEART AND VASCULAR STRUCTURES: Heart normal in size. Normal vasculature. BONES: No acute findings. HARDWARE: None in the chest. OTHER: No other significant finding. IMPRESSION: NO ACUTE RADIOGRAPHIC FINDING IN THE CHEST. TECHNICAL DOCUMENTATION: JOB ID: [id number] [employer]- All Rights Reserved Reading location - IP/workstation name: [email or web address]
[2018-09-21 20:55] VITALS: BP 147/85
--- NOTE | 2018-09-21 23:16 | EKG REPORT ---
SEVERITY:- OTHERWISE NORMAL ECG - SINUS TACHYCARDIA : Confirmed by: Deandre Aden 21-Sep-2018 23:15:16
== END 2018-09-21 20:59 | disposition home or self-care (01) ==
LOC: ER 13:39
DX: R07.9 Chest pain, unspecified (principal); M54.6 Pain in thoracic spine; I10 Essential (primary) hypertension; E11.9 Type 2 diabetes mellitus without complications; E78.00 Pure hypercholesterolemia, unspecified; Z88.6 Allergy status to analgesic agent
CPT/HCPCS: 36415; 71045; 80053; 82550; 82553; 84484; 85025; 85379; 93005; 93010; 99284